=== PATIENT | female | born 1950 | race Asian ===

== ENCOUNTER 2019-06-02 09:12 | Outpatient (CLI) | payer MEDICARE, OTHER ==
[2019-06-02 10:26] VITALS: BP 150/80
--- NOTE | 2019-06-02 10:26 | SLEEP CARE CONSULTATION ---
Information from patient questionnaire entered by Destinee Araujo. I have reviewed and concur with the information entered by Destinee Araujo. This document represents the service I personally performed and the decisions made by me, Luis Enrique Charles MD, [facility]. History of Present Illness Reason for Visit: New patient Chief Complaint: reports: Observed pauses in breathing Duration of Symptoms: 2 YEARS Usual bedtime: 11:30PM Time it takes to fall asleep: SECONDS Snores at night: Yes Observed to quit breathing while asleep: Yes Sleeps alone due to snoring: No Number of times waking at night: 1 Reasons for waking at night: reports: Bathroom Toss, Turn, or Twitch while sleeping: Yes (BUT NOT MUCH) Recalls having dreams: No Usually gets out of bed at: 6:30AM Feels refreshed in the morning: Yes Morning headache: No Sleepy or fatigued during the day: No Ever fallen asleep while driving: No Takes day naps: Yes Dreams during day naps: No Prior sleep studies: No Additional HPI information: I had the pleasure of seeing Ms. Camarillo along with her today regarding the possibility of her having a sleep disorder. As you know, she is a 69 year old lady who complains of observed apneas. She wears full dentures and leaves it in at night. The patient tells me that she normally goes to bed around 11 pm and midnight, and it takes her approximately just a few minutes to fall asleep. She has been told that she snores loudly and irregularly at night. She has also been observed to stop breathing in her sleep. Her spouse can still sleep in the same bed. She can recall waking up on the average of 1 time during the night. Most of the time she wakes up because of having to use the bathroom. She has never awakened because of her own snoring, choking, or having to gasp for air. She has somniloquy (sleep talking) but not somnambulism (sleep walking). Generally there is no recollection of dreams. In the morning she usually gets up out of the bed around 6 - 7 a.m. not feeling refreshed and rested. She usual ly does not have a morning headache. During the day she complains of feeling sleepy and fatigued. Her score on [place] Sleepiness Scale is 14 out of 24. She has never fallen asleep while driving nor has had any accident due to sleepiness. She usually takes a nap during the day. Subjective Initial [place] Sleepiness Scale score: 14 Past Medical History Past Medical History: reports: Other (ALMOST DIABETIC) Social History The patient's occupation is a RE. Patient is and lives in [place]. Have you smoked in the past 12 months: No Alcohol use: No Caffeine use: Yes Caffeine amount and frequency: 3-4 CUPS Family History Family history of sleep disordered breathing: No Allergies and Home Medications Known drug allergies: Yes (opiods) Home medication list reviewed: Yes (Claritin) Review of Systems Weight gain over past 5 years: 20 Ear/Nose/Throat: reports: dry mouth/throat Musculoskeletal: reports: joint pain Immunologic: reports: sneezing, rash (OPIODS), itching (OPIODS) Physical Exam Vital signs obtained and entered by: Dr. Charles Blood Pressure: 150/80 Cuff size: regular Heart Rate: 66 O2 Saturation: 98 Height: 5 ft 3 in Weight (kg): 75.296 kg Body Mass Index: 29.4 BMI Classification: Overweight Neck circumference: 15 HEENT: No craniofacial malformation Nostrils: patent to airflow Turbinates: normal Septum: midline Mouth and throat: narrow oropharynx Soft palate: normal Hard palate: normal (She wears full upper and lower dentures) Uvula: normal Uvula visualization: 50% Mallampati Class II Tongue: normal in size Tonsils: small Chin and jaw: normal size and position Neck: normal w/o lymphadenopathy or thyromegaly Heart: regular rate and rhythm, murmur Lungs: clear bilaterally Abdomen: soft, non-tender Extremities: no edema or clubbing Neurologic: intact, no focal deficits Impression and Plan Impression: 1. Obstructive Sleep Apnea-Hypopnea Syndrome, as suggested by history of loud and irregular snoring, observed cessation of breath while asleep, and daytime hypersomnolence. Narrow oropharynx and obesity are common predisposing factors for obstructive sleep apnea-hypopnea syndrome. Untreated obstructive sleep apnea can also cause hypertension. Pathophysiology of sleep-disordered breathing was discussed. I recommend proceeding to polysomnography to confirm the diagnosis and to assess severity. If she has significant sleep disordered breathing, a manual CPAP titration study will also be performed to find the optimal treatment pressure. I informed the patient of what the sleep studies involve and after some discussion, she agreed to proceed. Plan: 1. Schedule polysomnography + manual CPAP titration study and return in 1 to 2 weeks after the study to discuss result and initiate therapy. 2. Avoid long distance driving or when feeling sleepy. 3. Avoid alcohol, sedative and muscle relaxant around bedtime. 4. Attempt to lose weight. I spent 100% of this 15 minute visit face to face with the patient with greater than 50% of this was spent time counseling the patient and coordination of care.
== END 2019-06-02 09:13 | disposition home or self-care (01) ==
LOC: SC 09:12
PROVIDERS: ATTEND Internal Medicine Pulmonary Disease
DX: G47.10 Hypersomnia, unspecified (principal); R06.83 Snoring; R06.81 Apnea, not elsewhere classified
CPT/HCPCS: 99203; G0463; 99212

== ENCOUNTER 2024-04-01 10:45 | Outpatient (CLI) | payer MEDICARE, OTHER ==
--- NOTE | 2024-04-01 12:15 | XRAY Report ---
PROCEDURE: Chest 2V INDICATIONS: ACUTE COUGH TECHNIQUE: 2 views of the chest were acquired. COMPARISON: Outside radiograph 01/13/2023 FINDINGS: Surgical changes and devices: None. Lungs and pleura: Low lung volumes. Mild interstitial prominence, blurring of the left heart border, lower lung opacities on lateral view, and perihilar opacities. No drainable effusions. Mediastinum: Normal heart size. Cardiac mediastinal contours are unchanged Bones and chest wall: Left humeral neck fracture deformity. IMPRESSION: Mild multifocal opacities suspicious for infection. Consider future imaging surveillance to assess fo r resolution. Reviewed by: Matt Mcgowan MD on 04/01/2024 12:14 PM PDT Approved by: Matt Mcgowan MD on 04/01/2024 12:14 PM PDT Station ID: [id number]
== END 2024-04-01 11:00 | disposition home or self-care (01) ==
LOC: DI.N 10:45
PROVIDERS: ATTEND Physician Assistant Medical
DX: R91.8 Other nonspecific abnormal finding of lung field (principal)